=== PATIENT | male | born 1975 | race Caucasian/White ===

== ENCOUNTER 2022-02-04 07:43 | Emergency (ER) | payer BC, OTHER, SELFPAY ==
[2022-02-04] VITALS (10 sets, daily range): BP systolic 131–174; BP diastolic 84–111; PULSE 76–92; RESP 14–22; TEMP 36.7; O2SAT 97–99; BMI 41.1
--- NOTE | 2022-02-04 08:08 | HMH.EDGENADL ---
Discharge Plan Disposition Patient Disposition: Home, Self-Care Condition: Good Chief Complaint: Recheck/Abnormal Lab/Rx Referrals Follow up/Referrals: Aurora Choi MD [Staff Physician] - See instructions (Call today to set up earliest available appointment) Temo Joiner MD [Referring] - See instructions (if unable to f/u quickly here, call [facility] for earliest possible appointment) Clinical Impressions Clinical Impression: Hemianopia, homonymous, right Instructions Patient Instructions: DI for Visual Field Disturbances Discharge ED Provider: Darrius Ulloa General Adult HPI General Chief complaint: Recheck/Abnormal Lab/Rx Stated complaint: vision is fading Time Seen by Provider: 02/04/22 08:08 Mode of Arrival: Ambulatory Source of Information: Patient Limitations: No Limitations Description of Symptoms (Recalled from ER Triage Doc. by RN): Pt c/o distorted vision x3 days that has been increasing in frequency. Advises I'll be looking at a word and I can see the first half of it just fine, but it's like the other half is not there. It's not blurry or blacked out or anything, it's just not there at all . Pt states Like, when I was leaving work this morning, I was looking at my locker and I could see the first half of my name, and the ending of my last name, but the middle part of the words just wasn't there . Pt states that he has a minor intermittent HYMAN and his BP has been elevated, but denies any other symptoms. History of Present Illness HPI narrative: 46-year-old male with past medical history of hypertension, hyperlipidemia neither of which are acutely treated. He presents with several days of of intermittent visual field deficit. He describes it as looking at something and then will lose the right sided aspect of whenever he is focusing on. Stated initially having a few days ago noticing increasing in frequency. He describes the lateralization as to the right side with both eyes, so temporal relative to the right eye and nasal relative to the left eye. He had an episode that occurred this morning when he was leaving work which prompted concern in the visit today however he states symptoms of subsequently resolved and as of right now his vision is totally normal. During these episodes he denies any speech deficit any facial asymmetry any numbness, tingling, weakness, blurry or double vision, headache, extremity weakness or any other symptoms. He denies any known cardiovascular disease any known stroke in the past. He denies any head trauma, denies history of complex migraine or seizure. Related Data Allergies Allergy/AdvReac Type Severity Reaction Status Date / Time No Known Allergies Allergy Verified 02/04/22 08:45 [facility] Social History Smoking Status: Never smoker alcohol intake: never current occupational status: employed Travel in the last 8 weeks: None ROS Obtained: Yes Systems reviewed as appropriate & no additional complaints except as documented Constitutional Constitutional: Reports system reviewed and no additional complaints, except as documented Eyes Eyes: Reports as per HPI ENT Ears, Nose, Mouth, and Throat: Reports system reviewed and no additional complaints, except as documented Cardiovascular Cardiovascular: Reports system reviewed and no additional complaints, except as documented Respiratory Respiratory: Reports system reviewed and no additional complaints, except as documented Gastrointestinal Gastrointestingal: Reports system reviewed and no additional complaints, except as documented Genitourinary Male Genitourinary: Reports system reviewed and no additional complaints, except as documented Musculoskeletal Musculoskeletal: Reports system reviewed and no additional complaints, except as documented Integumentary/Breasts Skin/Breast: Reports system reviewed and no additional complaints, except as documented Neurologic Neurol
--- NOTE | 2022-02-04 08:30 | CT_ITS ---
FINAL REPORT TECHNIQUE: Noncontrast exam CLINICAL HISTORY: head injury, partial vision loss FINDINGS: No abnormal density is seen. Ventricles are normal. There is no hemorrhage. No mass effect is seen. Bone windows show no evidence of fracture. IMPRESSION: No acute findings. Should symptoms persist recommend MRI. Reviewed, Interpreted and Dictated by Sobeida Hanson MD Transcribed by Barry Butts Authenticated and [facility]
--- NOTE | 2022-02-04 08:30 | CT_ITS ---
FINAL REPORT CLINICAL HISTORY: right homonymous hemianopsia FINDINGS: CTA HEAD Thin section axial CT with contrast with multiplanar reconstruction No aneurysm is seen. Major intracranial vessels are patent without significant stenosis. . IMPRESSION: Unremarkable CTA NECK Thin section axial CT with contrast with multiplanar reconstruction NASCET criteria and technique was utilized during interpretation. Aortic arch: Arch shows no significant narrowing. Great vessel origins are widely patent . Right carotid: No significant stenosis is seen of the cervical common or internal carotid artery . Left carotid: No significant stenosis is seen of the cervical common or internal carotid artery . Vertebrals: Co dominant vertebral arteries. No significant stenosis is present . IMPRESSION: No evidence of cervical carotid stenosis. Reviewed, Interpreted and Dictated by Sobeida Hanosn MD Transcribed by Barry Butts Authenticated and [facility]
--- NOTE | 2022-02-04 08:30 | CT_ITS ---
FINAL REPORT CLINICAL HISTORY: right homonymous hemianopsia, loss of vision, headache FINDINGS: CTA NECK Thin section axial CT with contrast with multiplanar reconstruction NASCET criteria and technique was utilized during interpretation. Aortic arch: Arch shows no significant narrowing. Great vessel origins are widely patent . Right carotid: No significant stenosis is seen of the cervical common or internal carotid artery . Left carotid: No significant stenosis is seen of the cervical common or internal carotid artery . Vertebrals: Codominant vertebral arteries. No significant stenosis is present . IMPRESSION: No evidence of cervical carotid stenosis. Reviewed, Interpreted and Dictated by Sobeida Hanson MD Transcribed by Barry Butts Authenticated and [facility]
[2022-02-04 09:03] LABS: Coronavirus 19, PCR Not Detected (NotDetected); Influenza A, PCR Not Detected (NotDetected); Influenza B, PCR Not Detected (NotDetected)
--- NOTE | 2022-02-04 09:03 | ECG_ITS ---
APPROVED REPORT Exam: Resting ECG HR:72 bpm ECG Measurements Heart Rate 72 AXES DC 190 P 20 QRSd 117 QRS -14 QT 365 T 13 QTc 390 Conclusion SINUS RHYTHM MODERATE INTRAVENTRICULAR CONDUCTION DELAY [110+ ms QRS DURATION] BORDERLINE ECG UNCONFIRMED REPORT Electronically signed by : Arley Fregoso MD 02/07/2022 16:02:50
[2022-02-04 09:05] LABS: Basophils # 0.1 K/mm3 (0-0.2); Basophils % 0.9 % (0.1-2.0); Eosinophils # 0.3 K/mm3 (0.0-0.4); Hemoglobin 14.8 g/dL (14.1-18.0); Lymphocytes # 2.7 K/mm3 (0.7-4.5); Lymphocytes % 24.9 % (10-50); Mean Corpuscular HGB Conc 32.8 g/dL (31.8-35.4); Mean Corpuscular Hemoglobin 26.5 pg (27.0-31.2); Mean Corpuscular Volume 80.6 fl (80-94); Mean Platelet Volume 9.7 fl (7.4-10.4); Monocytes # 0.7 K/mm3 (0.1-1.0); Neutrophils # 7.1 K/mm3 (1.8-7.8); Neutrophils % 65.2 % (37.0-80.0); Platelet Count 268 K/mm3 (142-424); Red Blood Count 5.58 M/mm3 (4.60-6.20); Red Cell Distribution Width 14.2 % (11.5-17.5)
--- NOTE | 2022-02-04 09:08 | PC.NURSE ---
pt to radiology
[2022-02-04 09:09] LABS: Chloride 103 mmol/L (98-107); Sodium 140 mmol/L (136-145)
[2022-02-04 09:12] LABS: Alanine Aminotransferase 75 U/L (12-78); Albumin Level 4.4 g/dl (3.5-5.0); Albumin/Globulin Ratio 1.5 (1.1-1.8); Alkaline Phosphatase 79 U/L (38-126); Aspartate Amino Transferase 61 U/L (17-59); Blood Urea Nitrogen 12 mg/dl (9-20); Carbon Dioxide 27 mmol/L (22.0-30.0); Creatinine Clearance Estimated 110 mL/min (50-200); Estimated Glomerular Filt Rate 91 ml/min (>60); GFR (African American) 110 ML/MIN (>60); Globulin 2.9 g/dL (1.3-3.2); Total Protein,Serum 7.3 g/dl (6.3-8.2)
[2022-02-04 09:13] LABS: Calcium 8.9 mg/dl (8.4-10.2); Glucose 104 mg/dl (74-100)
[2022-02-04 09:17] LABS: Bilirubin,Total 0.1 mg/dl (0.2-1.3)
--- NOTE | 2022-02-04 09:36 | PC.NURSE ---
pt return from radiology
--- NOTE | 2022-02-04 09:40 | PC.NURSE ---
PT BACK FROM CT, AND PT UPDATED THAT WE WERE WAITING ON READINGS
--- NOTE | 2022-02-04 11:00 | PC.NURSE ---
[facility] TO CALL BACK FOR CONSULT
--- NOTE | 2022-02-04 11:08 | PC.NURSE ---
VINNY ORNELAS speaking with [facility] at this time
--- NOTE | 2022-02-04 11:11 | PC.NURSE ---
[facility] CALLED BACK
--- NOTE | 2022-02-04 11:18 | PC.NURSE ---
IN WITH PT UPDATING ON RESULTS
--- NOTE | 2022-02-05 12:07 | PC.NURSE ---
spoke with neurology regarding pt referral per pt request. awaiting call back
== END 2022-02-04 11:33 | disposition home or self-care (01) ==
PROVIDERS: Emergency Provider Emergency Medicine
DX: H53.461 Homonymous bilateral field defects, right side (principal); R51.9 Headache, unspecified; E78.5 Hyperlipidemia, unspecified; Z20.822 Contact with and (suspected) exposure to COVID-19
CPT/HCPCS: 70450; 70496; 70498; 80053; 85025; 93005; 99285; C9803; Q9967; U0003; U0005

== ENCOUNTER → 2022-02-26 08:06 | Outpatient (CLI) | payer BC, OTHER, SELFPAY ==
--- NOTE | 2022-02-26 08:06 | MR_ITS ---
FINAL REPORT CLINICAL HISTORY: Transient vision loss. NUMBNESS ON RIGHT SIDE OF BODY [id number]. HEADACHE, DIZZINESS, AND VISION LOSS. FINDINGS: Multiplanar MR imaging of the brain was performed without contrast. There is no evidence of intracranial hemorrhage or mass. The ventricular size is normal. There is no evidence of shift of the midline structures. No abnormal extra-axial fluid collection is identified. The posterior fossa and brainstem have an unremarkable appearance. No area of abnormal restricted diffusion is identified. Normal major vessel vascular flow voids are seen. There is mild mucosal thickening in the ethmoid air cells. IMPRESSION: No acute intracranial abnormality. Reviewed, Interpreted and Dictated by Tony Segura III, MD Transcribed by Barry Butts Authenticated and [facility]
--- NOTE | 2022-03-18 10:35 | PC.NURSE ---
Talke with patient today about a overnight pulse ox. He stated he had done it once it didn't work and was not willing to pay to do it again.
== END ==
PROVIDERS: PCP Nurse Practitioner Family; Visit Provider Specialist
DX: H53.9 Unspecified visual disturbance (principal); R51.9 Headache, unspecified; R20.0 Anesthesia of skin; G47.33 Obstructive sleep apnea (adult) (pediatric)
CPT/HCPCS: 70551; 94762